=== PATIENT | female | born 1955 | race Caucasian/White ===

== ENCOUNTER 2018-12-08 04:09 | Emergency (ER) | payer MEDICARE ==
[~2018-12-08] VITALS: Ht 154.9 cm; Wt 109.0 kg
[2018-12-08 04:11] VITALS: BP 175/74
--- NOTE | 2018-12-08 04:16 | NUR ---
MERA HERNANDEZ FROM [place] [id number], PT HERE VISITING FROM [place]. H/X COPD. PER EMT PT WEARS 3l HOME O2 AND SPO2-83%, RECEIVED DUONEBS X2 AND SPO2-96%. B/P175/74, HR-92. MONITORS APPLIED, SIDERAILS UP X2, CALL LIGHT WITHIN REACH
[2018-12-08] MEDS ORDERED: methylPREDNISolone SOD SUCC 125 MG/2 ML ONE (04:26)
[2018-12-08] MEDS ORDERED: SODIUM CHLORIDE FLUSH 10ML SYR IVF ONE (04:30)
[2018-12-08] MEDS ORDERED: methylPREDNISolone SOD SUCC 125 MG/2 ML IVP ONE (04:30)
[2018-12-08] MEDS ORDERED: PLEASE ENTER ALLERGIES MC SCH (04:30)
[2018-12-08] MEDS ORDERED: TIOT4MIS3 INH (04:39)
[2018-12-08] MEDS ORDERED: CLON1TAB11 PO (04:39)
[2018-12-08] MEDS ORDERED: IPRA4AER INH (04:39)
[2018-12-08] MEDS ORDERED: PRED10TA14 PO (04:39)
[2018-12-08] MEDS ORDERED: ARIP5TAB13 PO (04:39)
[2018-12-08] MEDS ORDERED: SIMV40TA3 PO (04:39)
[2018-12-08] MEDS ORDERED: CITA40TA5 PO (04:39)
[2018-12-08] MEDS ORDERED: LISI-170 PO (04:39)
[2018-12-08] MEDS ORDERED: FURO-93 PO (04:39)
[2018-12-08] MEDS ORDERED: METF500T17 PO (04:39)
[2018-12-08] MEDS ORDERED: OMEP40CA6 PO (04:39)
[2018-12-08] MEDS ORDERED: HYDR25TA6 PO (04:39)
--- NOTE | 2018-12-08 05:19 | NUR ---
IV SITE STARTED PER DALE, SUP. PT MEDICATED PER ANJUM
[2018-12-08] MEDS ORDERED: ONDANSETRON 2MG/ML, 2ML ONE (05:23)
--- NOTE | 2018-12-08 05:27 | NUR ---
PT C/O NAUSEA, ERP UPDATED, ORDER RECEIVED FOR ZOFRAN, PT MEDICATED
[2018-12-08] MEDS ORDERED: ONDANSETRON 2MG/ML, 2ML IVPush ONE (05:30)
[2018-12-08 05:35] LABS: BASOPHILS # (AUTO) 0.06 x10^3/uL (0-0.1); BASOPHILS % (AUTO) 1 % (0-1); EOSINOPHILS # (AUTO) 0.78 x10^3/uL (0-0.4); EOSINOPHILS % (AUTO) 7 % (1-7); LYMPHOCYTES # (AUTO) 4.48 x10^3/uL (1-3.4); LYMPHOCYTES % (AUTO) 38 % (22-44); MD NO; MEAN CORPUSCULAR HEMOGLOBIN 29.2 pg (27.0-34.8); MEAN CORPUSCULAR HGB CONC 32.1 g/dL (32.4-35.8); MEAN PLATELET VOLUME 7.4 fL (7.4-10.4); MONOCYTES # (AUTO) 0.84 x10^3/uL (0.2-0.8); MONOCYTES % (AUTO) 7 % (2-9); NEUTROPHILS # (AUTO) 5.66 x10^3/uL (1.8-6.8); NEUTROPHILS % (AUTO) 48 % (42-75); PLATELET COUNT 351 x10^3/uL (130-400); RED BLOOD COUNT 4.35 x10^6/uL (3.82-5.3); RED CELL DISTRIBUTION WIDTH 14.2 % (9.6-15.2)
[2018-12-08 05:43] LABS: ALBUMIN 3.5 g/dL (3.4-5.0); ANION GAP 6 mmol/L (5-15); CALCIUM 8.6 mg/dL (8.5-10.1); CHLORIDE 110 mmol/L (98-107)
[2018-12-08 05:49] LABS: ALANINE AMINOTRANSFERASE 33 U/L (12-78); ALKALINE PHOSPHATASE 90 U/L (45-117); BILIRUBIN,TOTAL 0.6 mg/dL (0.2-1.0); CREATININE 0.88 mg/dL (0.55-1.02); TOTAL PROTEIN 7.2 g/dL (6.4-8.2)
--- NOTE | 2018-12-08 06:17 | NUR ---
ambualted with pt in hallway on o2 at 3l n/c, spo2-88-92%, erp updated
== END 2018-12-08 06:43 | disposition home or self-care (01) ==
LOC: ED 06:39
DX: J44.1 Chronic obstructive pulmonary disease with (acute) exacerbation (principal); R51 Headache; I10 Essential (primary) hypertension; E11.9 Type 2 diabetes mellitus without complications
CPT/HCPCS: 36415; 71045; 80053; 85025; 93005; 96374; 96375; 99284; J2405; J2930